=== PATIENT | male | born 2000 | race Two or more races ===

== ENCOUNTER 2025-03-20 02:55 | Emergency (ER) | payer SELFPAY ==
[2025-03-20 05:39] LABS: Glucose, Urine (Dipstick) Normal (Negative); Leukocyte Negative (Negative); Protein, Urine (Dipstick) 15 mg/dl (Neg-Trace); Specific Gravity, Urine 1.025 (1.005-1.030)
[2025-03-20 05:50] LABS: #Basophils 0.04 10x3/uL (0.0-0.2); #Eosinophils 0.07 10x3/uL (0.0-0.5); #Monocytes 0.80 10x3/uL (0.0-1.1); #Neutrophils 13.73 10x3/uL (1.5-8.4); %Basophils 0.3 % (0.0-2.0); %Eosinophils 0.4 % (0.0-6.0); %Lymphocytes 6.3 % (18.0-47.0); %Monocytes 5.1 % (0.0-10.0); %Neutrophils 87.6 % (40.0-75.0); Hematocrit 42.4 % (38.8-50.0); Hemoglobin 14.7 g/dL (13.5-17.5); Mean Corpuscular Hemoglobin 29.8 pg (27.0-33.0); Mean Corpuscular Volume 86.0 fL (81.2-95.1); Platelet Count 251 10x3/uL (150-450); Red Blood Cell (RBC) Count 4.93 10x6/uL (4.32-5.72); White Blood Cell (WBC) Count 15.68 10x3/uL (3.5-10.5)
[2025-03-20 06:17] LABS: ALT (SGPT) 39 U/L (Less than 45); AST (SGOT) 48 U/L (11-34); Albumin 4.9 g/dL (3.1-4.5); Alkaline Phosphatase 65 U/L (40-110); Anion Gap 12 mmol/L (10-20); BUN (Urea Nitrogen) 28 mg/dL (8.9-20.6); Bilirubin, Total 0.4 mg/dL (0.3-1.2); Calc. Creatinine Clearance 0 mL/min (70-130); Calcium 9.5 mg/dL (7.8-10.44); Carbon Dioxide 26 mmol/L (22-29); Chloride 105 mmol/L (98-107); Globulin 2.0 g/dL (2.4-3.5); Glucose 108 mg/dL (70-105); Lipase 38 U/L (8-78); Potassium 3.6 mmol/L (3.5-5.1); Sodium 139 mmol/L (136-145)
[2025-03-20 06:34] LABS: CAUTI Indications for Culture Pelvic or flank pain; RBC/HPF 0-3 HPF (0-3); WBC/HPF 0-3 HPF (0-3)
[2025-03-20 06:35] LABS: Bacteria/HPF None Seen HPF (None Seen); Urine Culture Reflex No No
[2025-03-20] MEDS ORDERED: Iopamidol 300 61% 100 ML VIAL FS ONE (10:38)
== END 2025-03-20 07:12 | disposition home or self-care (01) ==
LOC: CSHERS 02:55
DX: K52.9 Noninfective gastroenteritis and colitis, unspecified (principal)
CPT/HCPCS: 74177; 80053; 81001; 83605; 83690; 85025; J2272; Q9967